=== PATIENT | female | born 1970 | race African-American/Black ===

== ENCOUNTER 2019-04-21 13:21 | Emergency (ER) | payer OTHER ==
[~2019-04-21] VITALS: Ht 167.6 cm; Wt 81.6 kg
[2019-04-21 15:06] VITALS: BP 134/77
== END 2019-04-21 15:14 | disposition home or self-care (01) ==
LOC: ER 13:28
DX: L30.9 Dermatitis, unspecified (principal); Z88.2 Allergy status to sulfonamides